=== PATIENT | male | born 1985 | race African-American/Black ===

== ENCOUNTER 2019-12-04 18:06 | Emergency (ER) | payer SELFPAY ==
--- NOTE | 2019-12-04 18:54 | ER Document Report ---
ED General Pain - General Chief Complaint: Back Pain Stated Complaint: LOWER BACK PAIN Notes: Patient is a 34-year-old -[place] male with no reported past medical history presents the emergency department the chief complaint of low back pain that began prior to arrival. Patient states he was walking to a store when he felt a sudden onset of pain in the right lower back. States the pain radiates down both legs posteriorly to the feet. Denies any numbness or tingling associated. States he was able to stand with the pain but noticed an increase in pain with extension of the lumbar spine, improvement with flexion of the spine. EMS was called who gave the patient 60 of Toradol IM in route. Patient reports that has helped some. He denies any difficulty defecating. No trouble urinating. No incontinence. No saddle anesthesia. No fall, blunt injury or trauma. TRAVEL OUTSIDE OF THE [place] IN LAST 30 DAYS: No - Related Data Allergies/Adverse Reactions: No Known Allergies Allergy (Verified 03/06/15 11:49) Past Medical History - Social History Smoking Status: Current Every Day Smoker Family History: Arthritis, CAD, CVA, DM, Hyperlipidemia, Hypertension, Malignancy Musculoskeletal Medical History: Reports Hx Musculoskeletal Deformity, Reports Hx Musculoskeletal Trauma - Immunizations Immunizations up to date: No Hx Diphtheria, Pertussis, Tetanus Vaccination: No Review of Systems - Review of Systems Constitutional: denies: Fever EENT: denies: Eye pain Cardiovascular: denies: Chest pain Respiratory: denies: Cough Gastrointestinal: denies: Abdomen distended Genitourinary: denies: Burning Male Genitourinary: denies: Testicular pain Musculoskeletal: Back pain Skin: denies: Change in color Hematologic/Lymphatic: denies: Blood clots Neurological/Psychological: denies: Seizure Physical Exam - Vital signs Vitals: Temp Pulse Resp BP Pulse Ox 99.1 F 104 H 16 124/76 97 12/04/19 18:36 12/04/19 18:36 12/04/19 18:36 12/04/19 18:36 12/04/19 18:36 - General General appearance: Appears well, Alert - Respiratory Respiratory status: No respiratory distress Chest status: Nontender Breath sounds: Normal Chest palpation: Normal - Cardiovascular Rhythm: Regular Heart sounds: Normal auscultation Murmur: No - Abdominal Inspection: Normal Distension: No distension Bowel sounds: Normal Tenderness: Nontender Organomegaly: No organomegaly - Back Back: Normal, Other - Positive straight leg raise bilaterally, worse on the right. Full passive range of motion of the lower extremities. 2+ DP/PT bilaterally. Lower extremity strength 5 out of 5 bilaterally. Patient able to elevate great toes bilaterally. Gait limited by pain. No deformity, step-off or crepitus.. No: Tender, Deformity/step-off, CVA tenderness, Vertebra tenderness - Neurological Neuro grossly intact: Yes Cognition: Normal Orientation: AAOx4 - Psychological Associated symptoms: Normal affect, Normal mood - Skin Skin Temperature: Warm Skin Moisture: Dry Skin Color: Normal Course - Re-evaluation Re-evalutation: 12/04/19 19:40 X-rays negative for acute process per radiologist. History and physical consistent with a lumbosacral strain. Patient was given Toradol in route. Will send home with a short course of [place] to go and a prescription for Robaxin. Counseled him regarding the importance of outpatient follow-up and advised that he return here or any ER immediately with any new, persistent or worsening symptoms. He verbalized understood and agreed. Patient was evaluated on the [place] controlled substance database reporting system and no record was found. - Vital Signs Vital signs: Temp Pulse Resp BP Pulse Ox 99.1 F 104 H 16 124/76 97 12/04/19 18:36 12/04/19 18:36 12/04/19 18:36 12/04/19 18:36 12/04/19 18:36 Discharge - Discharge Clinical Impression: Lumbosacral strain Qualifiers: Encounter type: initial encounter Qualified Code(s): S39.012A - Strain of muscle, fascia and tendon of lower back, initial encounter Condition: Stable Disposition: HOME, SELF-CARE Instructions: Low Back Pain ([facility]), Oral Narcotic Medication ([facility]) Additional Instructions: Follow-up with your regular doctor in 2 to 3 days for reevaluation. Return here or any ER immediately with any new, persistent or worsening symptoms. Prescriptions: Methocarbamol [Robaxin 500 mg Tablet] 500 mg PO QID PRN #20 tablet PRN Reason: Referrals: [facility] [NO LOCAL MD] - Follow up as needed
--- NOTE | 2019-12-04 19:35 | RADIOLOGY REPORT (SQ) ---
EXAM DESCRIPTION: L SPINE WHOLE IMAGES COMPLETED DATE/TIME: 12/04/2019 7:18 pm REASON FOR STUDY: low back pain COMPARISON: None. NUMBER OF VIEWS: Five views including obliques. TECHNIQUE: AP, lateral, oblique, and sacral radiographic images acquired of the lumbar spine. LIMITATIONS: None. FINDINGS: MINERALIZATION: Normal. SEGMENTATION: Normal. No transitional anatomy. ALIGNMENT: Normal. VERTEBRAE: Maintained height. No fracture or worrisome bone lesion. DISCS: Preserved height. No significant osteophytes or end plate irregularity. POSTERIOR ELEMENTS: Pedicles and facets are intact. No pars defect or posterior arch defects. HARDWARE: None in the spine. PARASPINAL SOFT TISSUES: Normal. PELVIS: Intact as visualized. No fractures or worrisome bone lesions. SI joints intact. OTHER: No other significant finding. IMPRESSION: No significant findings. TECHNICAL DOCUMENTATION: JOB ID: [id number] [place]-72 2010 [employer]- All Rights Reserved Reading location - IP/workstation name: [email or web address]
[2019-12-04] MEDS ORDERED: HYDROCODONE/ACETAMINOPHEN 5-325 MG (6 TAB/ER DISP) PO PRN (19:42)
[2019-12-04 20:05] VITALS: BP 117/77
== END 2019-12-04 20:03 | disposition home or self-care (01) ==
LOC: ER 18:06
DX: S39.012A Strain of muscle, fascia and tendon of lower back, initial encounter (principal); F17.200 Nicotine dependence, unspecified, uncomplicated; X58.XXXA Exposure to other specified factors, initial encounter; Y93.01 Activity, walking, marching and hiking
CPT/HCPCS: 72110; 99283

== ENCOUNTER 2019-12-09 08:29 | Emergency (ER) | payer SELFPAY ==
[2019-12-09 08:40] VITALS: BP 124/94
[2019-12-09] MEDS ORDERED: IBUPROFEN 600 MG TABLET PO ONE (09:20)
[2019-12-09] MEDS ORDERED: HYDROCODONE/ACETAMINOPHEN 5-325 MG TABLET PO ONE (09:20)
[2019-12-09] MEDS ORDERED: PREDNISONE 20 MG TABLET PO ONE (09:20)
--- NOTE | 2019-12-09 09:27 | ER Document Report ---
ED Neck/Back Problem - General Chief Complaint: Low Back Pain Stated Complaint: BACK PAIN Time Seen by Provider: 12/09/19 09:15 Notes: HPI: 34-year-old male who presents today with the onset of some left lower back pain that radiates down the left leg around 5 days ago. This was atraumatic. No fevers, incontinence, weakness or numbness of the legs. Some radiation down the left leg. Patient seems to have presented here on 5 days ago and at that time according to the note stated right back pain. He had an x-ray of the lumbar spine that was unremarkable. Patient denies any IV drug abuse. No new or worrisome symptoms. Patient presents with continued pain. ROS: See HPI All other review of systems reviewed and otherwise negative Reviewed vital signs and nursing note as charted by RN. PHYSICAL EXAM: CONSTITUTIONAL: Alert and oriented and responds appropriately to questions. Well-appearing; well-nourished HEAD: Normocephalic; atraumatic ABD/GI: Normal bowel sounds; non-distended; soft, non-tender BACK: The back appears normal and is non-tender to palpation along the midline spine without swelling, erythema, induration, or step-offs. Patient has some left-sided paraspinal muscular tenderness without swelling or erythema EXT: Normal ROM in all joints; non-tender to palpation; no edema SKIN: No acute lesions noted NEURO: CN 2-12 intact; 5/5 bilateral upper and lower extremity strength with sensation intact to light touch; bilateral patellar reflexes intact. Excellent flexion and extension strength of the feet PSYCH: The patient's mood and manner are appropriate. Grooming and personal hygiene are appropriate. TRAVEL OUTSIDE OF THE [place] IN LAST 30 DAYS: No - Related Data Allergies/Adverse Reactions: No Known Allergies Allergy (Verified 12/09/19 08:51) Past Medical History - Social History Smoking Status: Current Every Day Smoker Chew tobacco use (# tins/day): No Frequency of alcohol use: None Drug Abuse: None Family History: Arthritis, CAD, CVA, DM, Hyperlipidemia, Hypertension, Malignancy Patient has homicidal ideation: No Musculoskeletal Medical History: Reports Hx Musculoskeletal Deformity, Reports Hx Musculoskeletal Trauma - Immunizations Immunizations up to date: No Hx Diphtheria, Pertussis, Tetanus Vaccination: No Physical Exam - Vital signs Vitals: Temp Pulse Resp BP Pulse Ox 97.6 F 108 H 20 124/94 H 96 10/12/20 08:39 12/09/19 08:39 12/09/19 08:39 12/09/19 08:39 12/09/19 08:39 Course - Re-evaluation Re-evalutation: 12/09/19 09:23 Given the vital signs, history and physical, I do believe discitis, epidural abscess, osteomyelitis, spinal cord compression to be extremely unlikely. Neuro exam is reassuring. I will provide a course of steroids as well as instructions regarding ibuprofen and a short course of narcotic medications with strict return precautions and orthopedic follow-up. - Vital Signs Vital signs: Temp Pulse Resp BP Pulse Ox 97.6 F 108 H 20 124/94 H 96 12/09/19 08:51 12/09/19 08:39 12/09/19 08:39 12/09/19 08:39 12/09/19 08:39 Discharge - Discharge Clinical Impression: Lumbar strain Qualifiers: Encounter type: initial encounter Qualified Code(s): S39.012A - Strain of muscle, fascia and tendon of lower back, initial encounter Condition: Good Disposition: HOME, SELF-CARE Additional Instructions: Come back immediately for any increased pain, change in location or quality of pain, fevers or vomiting, weakness of the legs, incontinence, foot drop, or any other acute problems. Take the steroids as prescribed. Please also take 600 mg of ibuprofen every 6 hours for the next 5 days. Take the pain medications prescribed only as needed. Please follow-up with Dr. Pollack with orthopedics for further evaluation. Prescriptions: Prednisone [Deltasone 20 mg Tablet] 3 tab PO DAILY 5 Days tablet Hydrocodone/Acetaminophen [Ste[place] 5-325 mg Tablet] 1 tab PO Q8 #10 tablet Referrals: NELSON POLLACK JR, DO [ACTIVE PROVISIONAL STAFF] - Follow up as needed
== END 2019-12-09 09:41 | disposition home or self-care (01) ==
LOC: ER 08:29
DX: S39.012A Strain of muscle, fascia and tendon of lower back, initial encounter (principal); F17.200 Nicotine dependence, unspecified, uncomplicated; X58.XXXA Exposure to other specified factors, initial encounter
CPT/HCPCS: 99284; J7512